=== PATIENT | male | born 1985 | race African-American/Black ===

== ENCOUNTER 2016-12-09 13:40 | Emergency (ER) | payer MEDICAID ==
[~2016-12-09] VITALS: Ht 177.8 cm; Wt 80.0 kg
[2016-12-09 14:58] LABS: HEMATOCRIT 39.1 % (42.0-52.0); MEAN CORPUSCULAR HEMOGLOBIN 31.6 pg (28.0-32.0); PLATELET 213 x1000/uL (130-400); RED BLOOD CELL COUNT 4.12 mill/uL (4.7-6.1); RED CELL DISTRIBUTION WIDTH 13.4 % (11.6-14.6)
[2016-12-09 14:59] LABS: *AMPHETAMINES SCREEN URINE PRESUMTIVE POSITIVE (NEGATIVE); *BARBITURATES SCREEN URINE NEGATIVE (NEGATIVE); *BENZODIAZEPINES SCREEN URINE PRESUMTIVE POSITIVE (NEGATIVE); *COCAINE SCREEN URINE NEGATIVE (NEGATIVE); CANNABINOID URINE SCREEN PRESUMTIVE POSITIVE (NEGATIVE); METHADONE URINE SCREEN NEGATIVE (NEGATIVE); OPIATES URINE SCREEN NEGATIVE (NEGATIVE); PHENCYCLIDINE URINE SCREEN NEGATIVE (NEGATIVE)
[2016-12-09 15:07] LABS: CARBON DIOXIDE 25 mEq/L (21-32); CHLORIDE 108 mEq/L (98-107)
[2016-12-09 17:05] VITALS: BP 120/78
== END 2016-12-09 17:19 | disposition home or self-care (01) ==
LOC: ER 13:46
DX: F19.10 Other psychoactive substance abuse, uncomplicated (principal); E11.9 Type 2 diabetes mellitus without complications
CPT/HCPCS: 36415; 51702; 80048; 80305; 82962; 85027; 99284; Z7610; A4315

== ENCOUNTER 2016-12-22 10:27 | Emergency (ER) | payer MEDICAID, OTHER ==
[~2016-12-22] VITALS: Ht 185.4 cm; Wt 75.0 kg
[2016-12-22] MEDS ORDERED: KETOROLAC 60MG/2ML VIAL IM ONE (14:30)
[2016-12-22 14:58] VITALS: BP 133/82
== END 2016-12-22 15:56 | disposition home or self-care (01) ==
LOC: ER 13:09
DX: G89.29 Other chronic pain (principal); M54.5 Low back pain; M79.669 Pain in unspecified lower leg
CPT/HCPCS: 96372; 99283; J1885

== ENCOUNTER 2018-11-05 03:48 | Emergency (ER) | payer MEDICAID, OTHER ==
[~2018-11-05] VITALS: Ht 182.9 cm; Wt 77.0 kg
[2018-11-05] MEDS ORDERED: ACETAMINOPHEN 325MG TABLET PO ONE (05:15)
[2018-11-05] MEDS ORDERED: BACITRACIN ZINC OINT UDPKT TOP ONE (05:15)
[2018-11-05 05:26] LABS: BASOPHILS % 0.4 % (0.0-2.0); EOSINOPHILS % 5.3 % (0.0-5.0); HEMATOCRIT. 41.1 % (42.0-52.0); HEMOGLOBIN. 13.7 g/dL (14.0-18.0); LYMPHOCYTES % 52.8 % (20.0-50.0); MEAN CORPUSCULAR HEMOGLOBIN 31.6 pg (28.0-32.0); MEAN CORPUSCULAR VOLUME 94.6 fL (80.0-94.0); MEAN PLATELET VOLUME 7.9 fl (7.4-10.4); MONOCYTES % 13.4 % (2.0-8.0); NEUTROPHILS % 28.1 % (40.0-76.0); PLATELET 229 x1000/uL (130-400); RED BLOOD CELL COUNT 4.35 mill/uL (4.7-6.1); RED CELL DISTRIBUTION WIDTH 15.5 % (11.6-14.6)
[2018-11-05 05:33] LABS: CHLORIDE 109 mEq/L (98-107)
[2018-11-05 05:36] LABS: ETHANOL BLOOD < 10 mg/dL
[2018-11-05 09:35] VITALS: BP 108/70
== END 2018-11-05 09:31 | disposition home or self-care (01) ==
LOC: ER 03:48
DX: F12.10 Cannabis abuse, uncomplicated (principal); S09.8XXA Other specified injuries of head, initial encounter; W18.39XA Other fall on same level, initial encounter; Y93.89 Activity, other specified; Y92.89 Other specified places as the place of occurrence of the external cause; Y99.8 Other external cause status; Z98.890 Other specified postprocedural states
CPT/HCPCS: 36415; 70486; 80048; 80307; 80320; 80329; 99284; G0480